=== PATIENT | male | born 1970 | race Two or more races ===

== ENCOUNTER 2021-03-18 08:08 | Day surgery (SDC) | payer BC ==
--- NOTE | 2021-03-12 10:58 | EKG ---
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
--- NOTE | 2021-03-12 11:51 | RAD REPORT ---
EXAM DESCRIPTION: RAD - Chest Pa And Lat (2 Views) - 03/12/2021 11:03 am CLINICAL HISTORY: preop COMPARISON: No comparisons FINDINGS: No evidence of edema or pneumonia. The heart size is within normal limits.No acute osseous abnormality. No significant pleural effusions or pneumothorax. IMPRESSION: No acute cardiopulmonary disease.
[2021-03-12 13:23] LABS: Protime INR 0.91
[2021-03-12 13:41] LABS: Absolute Lymphocytes (CBC) 1.2 K/uL (0.7-4.9); Basophils % 0.7 % (0-1.3); Hematocrit 45.4 % (39.6-49.0); Lymphocytes % 29.3 % (15.3-44.8); MPV 8.5 fL (7.6-11.3); RBC Red Blood Cell Count 4.92 M/uL (4.33-5.43)
[2021-03-12 19:09] LABS: BUN Blood Urea Nitrogen 18 mg/dL (7-18); Bicarbonate 28 mmol/L (21-32); Glucose Level 272 mg/dL (74-106); Potassium 4.2 mmol/L (3.5-5.1); Sodium Level 139 mmol/L (136-145)
[2021-03-18] MEDS ORDERED: MIDAZOLAM HCL 2 MG/2 ML INJ ONE (08:46)
[2021-03-18] MEDS ORDERED: propofoL 200 MG/20 ML VIAL IV ONE (08:47)
[2021-03-18] MEDS ORDERED: KETOROLAC 30 MG/ML INJ ONE (08:47)
[2021-03-18] MEDS ORDERED: FENTANYL CITR 100 MCG/2 ML ONE (08:47)
[2021-03-18] MEDS ORDERED: LIDOCAINE 2% MPF 5 ML VIAL ONE (08:47)
[2021-03-18] MEDS ORDERED: CEFAZOLIN/SWI 1gm 1 GM/10 ML SYR ONE (09:11)
[2021-03-18] MEDS ORDERED: NA CHLORIDE 0.9% 1,000 ML ONE (09:33)
[2021-03-18] MEDS ORDERED: BUPIVACAINE 0.25% PF 30 ML VIAL ONE (09:36)
--- NOTE | 2021-03-18 10:45 | P.BOP ---
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
[2021-03-18 11:29] VITALS: O2SAT 99
[2021-03-18 13:43] VITALS: BP 126/81
[2021-03-18 13:45] VITALS: TEMP 98.1
--- NOTE | 2021-03-19 08:32 | OP ---
Date of Procedure: 03/18/2021 Surgeon: Killian Inman MD Preoperative Diagnosis: Right hand middle finger trigger digit. Postoperative Diagnosis: Right hand middle finger trigger digit. Procedure Performed: Right hand middle finger A1 yenifer release. Anesthesia: General LMA. Fluids: Per Anesthesia record. Estimated Blood Loss: 2 cc. Complications: None. Implants: None. Tourniquet Time: 14 minutes at 250 mmHg. Indication For Procedure: Javid is a 50-year-old male, who presents to clinic with signs and sym ptoms consistent with a right middle finger trigger digit. The patient failed conservative treatment measures, including corticosteroid injection and had continued patient and triggering. I discussed with the patient at length risks and benefits associated with operative and nonoperative treatment an d he expressed understanding and elected to proceed with operative treatment. Description Of Procedure: After informed consent was obtained, the patient was identified in the pre operative holding area. The right middle finger was marked. The patient was then brought back to [facility] operating room, transferred to the operative table in supine fashion, placed under general LMA anes thesia. The right upper extremity was then prepped and draped in usual sterile fashion. A time-out was initiated. Correct patient and procedure were confirmed and identified. The patient did receive his preoperative prophylactic antibiotics. The right upper extremity was exsanguinated using an Esm arch and the tourniquet was inflated to 250 mmHg. Approximately, a 1.5 cm longitudinal incision was made centered over the middle finger A1 yenifer. Dissection was then taken down to the flexor tendon sheath which was incised with a 15 blade and split along the A1 yenifer. A small section of the A1 pu lley tendon sheath was excised to minimize recurrence. The flexor tendon was then brought up to the incision using Ragnell. There was full excursion of the tendon without triggering noted. The wound and tendon sheaths were then irrigated thoroughly with normal saline. The skin was approximated usin g a 5-0 Prolene. Sterile dressings were applied. Tourniquet was let down. The patient was awakened and transferred to PACU in stable condition. Postoperative Plan: The patient may begin working on range of motion exercises. He will follow up i n 1 week for suture removal. CV/MODL Voice ID: [id number] Report ID: [id number]
== END 2021-03-18 12:20 | disposition home or self-care (01) ==
LOC: OR 08:08
PROVIDERS: ATTEND Orthopaedic Surgery Sports Medicine
PROC: 0LN70ZZ Release Right Hand Tendon, Open Approach (ICD-10-PCS; principal; 2021-03-18 09:00)
DX: M65.331 Trigger finger, right middle finger (principal); M25.541 Pain in joints of right hand
CPT/HCPCS: 93005; 85025; 80048; 36415; 85610; 82947 ×2; 85730; 71046; 26055; J2704; J2250; J3010; J0690; J7030